=== PATIENT | female | born 2000 | race Hispanic/Latino ===

== ENCOUNTER 2019-01-04 17:56 | Emergency (ER) | payer MEDICAID, OTHER ==
[2019-01-04] MEDS ORDERED: Doxylamine 25 MG TAB PO PRN (19:51)
[2019-01-04 19:52] LABS: #Basophils 0.1 thou/uL (0.0-0.2); #Eosinphils 0.3 thou/uL (0.0-0.7); #Lymphocytes 2.3 thou/uL (1.20-3.40); #Monocytes 0.8 thou/uL (0.11-0.59); #Neutrophils 7.1 thou/uL (1.40-6.50); %Basophils 0.6 % (0.0-1.0); %Eosinophils 2.7 % (0.0-10.0); %Lymphocytes 21.9 % (28.0-48.0); %Monocytes 7.8 % (0.0-4.0); %Neutrophils 67.1 % (31.0-61.0); Hemoglobin 12.9 g/dL (12.0-16.0); Mean Corpuscular HGB CONC 34.3 g/dL (32.0-36.0); Mean Corpuscular Hemoglobin 31.7 pg (25.0-35.0); Mean Corpuscular Volume 92.5 fL (78.0-98.0); Mean Platelet Volume 8.1 fL (7.4-10.4); Platelet Count 285 thou/uL (130-400); RBC Distribution Width 11.8 % (11.5-14.5); Red Blood Cell (RBC) Count 4.07 mill/uL (4.00-5.20); White Blood Cell (WBC) Count 10.5 thou/uL (4.8-10.8)
[2019-01-04] MEDS ORDERED: pyridOXINE 50 MG (B6) TAB PO PRN (19:52)
[2019-01-04 20:00] LABS: Bacteria/HPF None Seen HPF (None Seen); Bilirubin Negative (Negative); Blood, Urine Negative (Negative); Calcium Oxalate Crystals 1+ HPF (None Seen); Clarity Clear (Clear); Glucose, Urine (Dipstick) Normal (Negative); Leukocyte 75 Leu/uL (Negative); Mucous/LPF 1+ LPF (<2+); Nitrite Negative (Negative); Protein, Urine (Dipstick) 30 mg/dL (Neg-Trace); Urobilinogen Normal mg/dL (Less than 2); WBC/HPF 0-3 HPF (0-3)
[2019-01-04 20:15] LABS: ALT (SGPT) 31 U/L (8-55); AST (SGOT) 24 U/L (5-34); Albumin 4.3 g/dL (3.5-5.0); Alkaline Phosphatase 48 U/L (40-150); Anion Gap 12 mmol/L (10-20); BUN (Urea Nitrogen) 10 mg/dL (7.0-18.7); Bilirubin, Total 0.2 mg/dL (0.2-1.2); Calc. Creatinine Clearance 0 mL/min (70-130); Calcium 9.8 mg/dL (7.8-10.44); Carbon Dioxide 25 mmol/L (22-29); Chloride 103 mmol/L (98-107); Estimated GFR-MDRD Greater than 90; Globulin 3.3 g/dL (2.4-3.5); Glucose 80 mg/dL (70-105); Lipase 34 U/L (8-78); Potassium 4.3 mmol/L (3.5-5.1); Protein, Total 7.6 g/dL (6.0-8.3); Sodium 136 mmol/L (136-145)
== END 2019-01-04 21:04 | disposition home or self-care (01) ==
LOC: ERS 17:56
DX: O21.8 Other vomiting complicating pregnancy (principal); Z3A.12 12 weeks gestation of pregnancy
CPT/HCPCS: 36415; 80053; 81003; 81015; 83690; 85025; 87086; 99284

== ENCOUNTER 2019-01-17 12:32 | Emergency (ER) | payer OTHER | END 2019-01-17 18:15 | disposition home or self-care (01) | LOC: ERS 12:32 | DX: O99.612 Diseases of the digestive system complicating pregnancy, second trimester (principal); K59.00 Constipation, unspecified; Z3A.14 14 weeks gestation of pregnancy | CPT/HCPCS: 99283 ==

== ENCOUNTER 2019-03-07 15:22 | Outpatient (CLI) | payer OTHER ==
--- NOTE | 2019-03-07 16:42 | ULT ---
OBSTETRICAL ULTRASOUND: 03/07/2019 HISTORY: female undergoing anatomic evaluation. COMPARISON: None. TECHNIQUE: Multiplanar alvarez-scale sonographic imaging of the gravid uterus is obtained. FINDINGS: A single live intrauterine gestation is present, demonstrating a vertex presentation. The placenta is located anteriorly to the maternal right, demonstrating no evidence for previa or abruption. intracranial contents, spine and four chamber heart view appears unremarkable. heart rat e is 156 beats per minute. stomach, kidneys, umbilical cord insertion, urinary bladder, nose, l ips and umbilical cord appear within normal limits. Amniotic fluid index is 13.7 cm, within normal limits. Cervical length is approximately 4 cm. BIOMETRY: BPD: 5.4 cm (22 weeks 3 days) HC: 19.9 cm (22 weeks 1 day) AC: 16.5 cm (21 weeks 4 days) FL: 3.6 cm (21 weeks 4 days) Average age based on ultrasound is 22 weeks 0 days. Estimated date of delivery is 07/11/2019. Estimat ed weight is 435 g, plus or minus 65 g. IMPRESSION: Single live intrauterine gestation as detailed above. POS: [facility]
== END 2019-03-07 15:23 | disposition home or self-care (01) ==
LOC: BICULT 15:22
PROVIDERS: ATTEND Family Medicine
DX: Z34.02 Encounter for supervision of normal first pregnancy, second trimester (principal); Z3A.22 22 weeks gestation of pregnancy
CPT/HCPCS: 76805

== ENCOUNTER 2019-07-12 21:56 | Inpatient (IN) | payer OTHER ==
[~2019-07-12 21:56] MED LIST: Bupivacaine/Epinephrine 0.25% 30 ML VIAL ONE
[2019-07-12 22:54] VITALS: BMI 25.4
[2019-07-12] MEDS ORDERED: hydrALAZINE 20 MG/ML VIAL SLOW IVP PRN (23:19)
[2019-07-12] MEDS ORDERED: Acetaminophen 500 MG TAB PO PRN (23:19)
[2019-07-12] MEDS ORDERED: NS / Oxytocin 40 units/1000ml 1,000 ML IV PRN (23:19)
[2019-07-12] MEDS ORDERED: Lidocaine 1% (PF) 30 ML VIAL SC PRN (23:19)
[2019-07-12] MEDS ORDERED: Ondansetron PF 4 MG/2 ML Vial IVP PRN (23:19)
[2019-07-12] MEDS ORDERED: Zolpidem Tartrate 5 MG TAB PO PRN (23:19)
[2019-07-12] MEDS ORDERED: Ibuprofen 800 MG TAB PO PRN (23:19)
[2019-07-12] MEDS ORDERED: HYDROcodone/Acetaminophen 5/325 mg Tablet PO PRN ×2 (23:19)
[2019-07-12] MEDS ORDERED: Butorphanol Tartrate 1 MG/ML VIAL SLOW IVP PRN (23:19)
[2019-07-12] MEDS ORDERED: Methylergonovine 0.2 MG/ML VIAL IM PRN (23:19)
[2019-07-12] MEDS ORDERED: Promethazine HCl 25 MG/ML VIAL IM PRN (23:19)
[2019-07-12] MEDS ORDERED: Meperidine HCl/PF 25 MG/ML VIAL IM/IV PRN (23:19)
[2019-07-12] MEDS ORDERED: Misoprostol 200 MCG TAB PR PRN (23:19)
--- NOTE | 2019-07-12 23:25 | PDOC.LDHP ---
Labor and Delivery H&P Chief complaint: contractions HPI: 18 yo LAF presents c/o UCs since this PM. Denies ROM or bleeding. Current gestational age (weeks): 39 Due date: 07/18/19 Dating criteria: last menstrual period Grav: 1 Para: 0 OB History Details: PNC with Dr. Núñez w/o difficulty. Current complications: none Abnormal US findings: No Past Medical History: none Current medications: pre- vitamins Previous surgical history: none Allergies/Adverse Reactions: Allergies Allergy/AdvReac Type Severity Reaction Status Date / Time No Known Allergies Allergy Verified 07/12/19 22:42 Social history: none - Physical Exam Vital signs reviewed and normal: yes General: breathing through contractions Heart: RRR Lungs: CTAB Abdomen: NTTP Extremeties: trace edema FHT: category 1 [place] contractions every: q 2-3 mins - Vaginal Exam cm dilated: 2 Effacement: 90% Station: -1 - OB Labs GBS: negative - Assessment L&D Assessment: term patient in labor - Plan Plan: admit to L&D, informed consent obtained, anesthesia consult for pain management, other (Dr. Núñez notified of admit)
[2019-07-12] MEDS ORDERED: Lactated Ringer's 1,000 ML IV SCH (23:30)
[2019-07-12] MEDS ORDERED: NS w/ Oxytocin 10 units 500 ML IV SCH (23:30)
[2019-07-13 00:01] LABS: Hemoglobin 13.2 g/dL (12.0-16.0); Mean Corpuscular HGB CONC 34.6 g/dL (32.0-36.0); Mean Corpuscular Hemoglobin 33.3 pg (25.0-35.0); Mean Corpuscular Volume 96.2 fL (78.0-98.0); Mean Platelet Volume 8.1 fL (7.4-10.4); Platelet Count 279 thou/uL (130-400); RBC Distribution Width 12.2 % (11.5-14.5); Red Blood Cell (RBC) Count 3.96 mill/uL (4.00-5.20)
[2019-07-13] MEDS: Lactated Ringer's 1,000 ML IV SCH ×2 (00:08→19:27)
[2019-07-13 00:39] LABS: Syphilis Antibody Nonreactive (Nonreactive); Syphilis Antibody Index 0.04 S/CO (<1.00 Non-Reactive)
[2019-07-13 00:43] LABS: HBSAg Index 0.19 S/CO (0-0.99); Hep B Surf Ag Non-Reactive S/CO (NonReactive)
[2019-07-13] MEDS ORDERED: Fentanyl 4 mcg/Bup 0.1% Cadd 100 ML ONE ×2 (00:51→11:04)
[2019-07-13] MEDS ORDERED: Fentanyl 100 MCG/2 ML VIAL ONE (02:13)
[2019-07-13] MEDS ORDERED: diphenhydrAMINE 50 MG/ML VIAL IVP PRN (03:02)
[2019-07-13] MEDS ORDERED: Acetaminophen 325 MG TAB PO PRN (03:02)
[2019-07-13] MEDS ORDERED: Lactated Ringer's 500 ML IV PRN (03:02)
[2019-07-13] MEDS ORDERED: Naloxone HCl 0.4 mg/ml Vial IVP PRN ×2 (03:02)
[2019-07-13] MEDS ORDERED: EPHEDRINE 25 MG/5 ML SYRINGE SLOW IVP PRN (03:02)
[2019-07-13] MEDS ORDERED: Promethazine HCl 25 MG/ML VIAL IM PRN ×2 (03:02→18:58)
[2019-07-13] MEDS ORDERED: Ondansetron PF 4 MG/2 ML Vial IVP PRN ×2 (03:02→18:58)
[2019-07-13] MEDS ORDERED: Communication Order-Pharmacy FS SCH (03:15)
[2019-07-13] MEDS: Fentanyl 4 mcg/Bupivacaine 0.1% Cassette 100 ML EPIDURAL SCH ×2 (04:18→11:08)
[2019-07-13] MEDS ORDERED: HYDROcodone/Acetaminophen 5/325 mg Tablet PO PRN ×2 (18:58)
[2019-07-13] MEDS ORDERED: NS / Oxytocin 40 units/1000ml 1,000 ML IV SCH (18:58)
[2019-07-13] MEDS ORDERED: Milk Of Magnesia 30 ML UDCUP PO PRN (18:58)
[2019-07-13] MEDS ORDERED: Preparation H Ointment 28 GM TUBE PR PRN (18:58)
[2019-07-13] MEDS ORDERED: Bisacodyl 10 MG SUPP PR PRN (18:58)
[2019-07-13] MEDS ORDERED: hydrALAZINE 20 MG/ML VIAL SLOW IVP PRN (18:58)
[2019-07-13] MEDS ORDERED: diphenhydrAMINE 25 MG CAP PO PRN (18:58)
[2019-07-13] MEDS ORDERED: Lanolin Ointment 7 GM TUBE TOP PRN (18:58)
[2019-07-13] MEDS ORDERED: Benzocaine-Menthol 82.5 ML CAN TOP PRN (18:58)
[2019-07-13] MEDS ORDERED: Ferrous Sulfate 325 MG TAB PO SCH (19:30)
[2019-07-13] MEDS: Ibuprofen 800 MG TAB PO SCH (21:17)
[2019-07-13] MEDS: Docusate Calcium (SURFAK) 240 MG CAP PO SCH (21:18)
[2019-07-14] MEDS: Ibuprofen 800 MG TAB PO SCH ×3 (06:01→22:02)
[2019-07-14 06:17] LABS: Hemoglobin 11.1 g/dL (12.0-16.0); Mean Corpuscular HGB CONC 31.5 g/dL (32.0-36.0); Mean Corpuscular Volume 98.2 fL (78.0-98.0); Mean Platelet Volume 8.4 fL (7.4-10.4); Platelet Count 231 thou/uL (130-400); RBC Distribution Width 12.4 % (11.5-14.5); Red Blood Cell (RBC) Count 3.58 mill/uL (4.00-5.20); White Blood Cell (WBC) Count 16.2 thou/uL (4.8-10.8)
[2019-07-14] MEDS ORDERED: Adacel (T-DAP) 0.5 ML SYRINGE IM ONE (09:00)
[2019-07-14] MEDS: Docusate Calcium (SURFAK) 240 MG CAP PO SCH ×2 (09:32→22:03)
[2019-07-14] MEDS: Prenatal Vitamin 1 TAB PO SCH (09:33)
[2019-07-14] MEDS: Ferrous Sulfate 325 MG TAB PO SCH ×2 (09:33→17:20)
[2019-07-15] MEDS: Ibuprofen 800 MG TAB PO SCH ×2 (06:37→14:28)
[2019-07-15 08:30] VITALS: BP 127/86; TEMP 98.9
[2019-07-15] MEDS: Docusate Calcium (SURFAK) 240 MG CAP PO SCH (09:22)
[2019-07-15] MEDS: Ferrous Sulfate 325 MG TAB PO SCH (09:22)
[2019-07-15] MEDS: Prenatal Vitamin 1 TAB PO SCH (09:22)
[2019-07-15] MEDS ORDERED: Milk Of Magnesia 30 ML UDCUP PO SCH (15:00)
== END 2019-07-15 15:56 | disposition home or self-care (01) | DRG 807 ==
LOC: L&D/OP 21:56 → L&D 23:19 → 3SE 07-13 19:00
PROVIDERS: ADMIT Obstetrics & Gynecology; ATTEND Obstetrics & Gynecology
PROC: 10E0XZZ Delivery of Products of Conception, External Approach (ICD-10-PCS; principal; 2019-07-13)
PROC: 0UQMXZZ Repair Vulva, External Approach (ICD-10-PCS; 2019-07-13)
DX: O70.0 First degree perineal laceration during delivery (principal); Z37.0 Single live birth; Z3A.39 39 weeks gestation of pregnancy
CPT/HCPCS: 36415; 85027; 85461; 86780; 86850; 86900; 86901; 87340; 90384; 96372; J0595; J2001; J2405; J2590; J3010